=== PATIENT | male | born 1955 | race Caucasian/White ===

== ENCOUNTER 2021-10-20 11:59 | Outpatient (REF) | payer OTHER, SELFPAY ==
--- NOTE | ~2021-10-20 | US_ITS ---
EXAMINATION: US VENOUS ULTRASOUND WITH DOPPLER LOWER EXTREMITY, RIGHT CLINICAL INFORMATION: Right lower extremity pain and swelling COMPARISON: None TECHNIQUE: Ultrasound of the deep veins is performed from the hip to the calf with compression sonography and color and pulse Doppler assessment. Spectral analysis with color-flow imaging is performed. FINDINGS: There is normal venous compression and respiratory variation and augmented flow. The visualized common femoral vein, superficial femoral vein, profunda femoral vein, popliteal vein, and the trifurcation region shows no evidence of deep venous thrombosis. Barbour's cyst present measuring 4.6 x 1.1 x 3.1 cm. If the patient's symptoms persist, followup ultrasound in 5 days 7 days might be of value to exclude proximal propagation from a non-visualized calf vein. US/US venous duplex LE RT IMPRESSION: No DVT demonstrated in the right lower extremity. Barbour's cyst present.
== END 2021-10-20 12:00 | disposition home or self-care (01) ==
LOC: HO.US 11:59
PROVIDERS: PCP Internal Medicine; Visit Provider Internal Medicine
DX: M79.661 Pain in right lower leg (principal); R60.0 Localized edema
CPT/HCPCS: 93971

== ENCOUNTER 2022-06-30 14:24 | Outpatient (REF) | payer OTHER, SELFPAY ==
--- NOTE | ~2022-06-30 | XR_ITS ---
EXAMINATION: XR KNEE, RIGHT CLINICAL INFORMATION: Right knee injury with pain COMPARISON: None TECHNIQUE: Four views of the right knee. FINDINGS: A small knee joint effusion is present. Vascular calcifications are seen. Bones and soft tissues are otherwise normal. No fracture . Alignment is anatomic. Joint spaces are well maintained. No chondrocalcinosis. XR/XR knee RT 4V IMPRESSION: Small knee joint effusion. No evidence of an acute osseous injury.
== END 2022-06-30 14:25 | disposition home or self-care (01) ==
LOC: HO.HMGCX 14:24
PROVIDERS: PCP Internal Medicine; Visit Provider Internal Medicine
DX: S89.91XA Unspecified injury of right lower leg, initial encounter (principal); M25.561 Pain in right knee; X58.XXXA Exposure to other specified factors, initial encounter; Y93.9 Activity, unspecified; Y92.9 Unspecified place or not applicable; Y99.9 Unspecified external cause status
CPT/HCPCS: 73564

== ENCOUNTER 2025-01-13 11:26 | Outpatient (AMB) | payer OTHER, SELFPAY ==
--- NOTE | 2025-01-13 11:18 | A.OFFPC_ITS ---
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 Accompanied by: Self / Same As Patient Allergies No Known Allergies Allergy (Verified 01/13/25 11:41) Medication List - Last Reconciled 01/13/25 by Tomeka Chavira PA-C amlodipine 10 mg PO DAILY atorvastatin 10 mg PO DAILY losartan 100 mg PO DAILY naproxen 500 mg PO BID Tobacco use date assessed: 01/13/25 Fall risk assessment: No Falls in past year Last assessed Fall Risk: 01/13/25 Dental Screening Dental Screen Date: 01/13/25 Did you have a dental visit in the last 12 months?: Yes Did you have a dental problem in the last 6 months where you did not have access to dental care?: No Was dental information given to patient?: Patient has dentist HPI establish care HPI Details The patient is a 69-year-old male presenting for a new patient appointment and medication refills. The patient has a history of hypertension, managed with amlodipine and losartan, requiring refills during this visit. He reports no acute complaints related to his blood pressure management. The patient also has hyperlipidemia, for which he takes atorvastatin. He confirms that his recent blood work was normal, although specific results are not available due to record-keeping issues at his previous provider's office. He experiences osteoarthritis-related pain, particularly in his knee, for which he uses naproxen effectively. He ensures to take the medication with food to mitigate gastrointestinal side effects. The patient recently underwent a colonoscopy, which was normal except for non- bleeding hemorrhoids. He is on a five-year follow-up plan due to previous polyp findings. Social History - Exercise: Uses a knee brace occasional ly for support due to osteoarthritis. [facility] Medical History (Updated 01/13/25 @ 12:24 by Tomeka Chavira PA-C) Encounter for preventive care Osteoarthritis Hyperlipidemia Hypertension Establishing care with new doctor, encounter for Family History Father High blood pressure Heart attack Family history of diabetes mellitus Mother Lung cancer Social History Housing: House Alcohol intake: current Alcohol intake frequency: 0-2 drinks per day Patient Tobacco Use Status: Current everyday Tobacco user Cigarettes Per Day: 10 service: No Current occupational status: employed Cognitive needs: No Hearing needs: No Vision needs: Yes (cheaters glasses) Questionnaire PHQ-9 Over the last 2 weeks, how often have you been bothered by any of the following problems? 1. Little interest or pleasure in doing things: not at all 2. Feeling down, depressed, or hopeless: not at all 3. Trouble falling or staying asleep, or sleeping too much: not at all 4. Feeling tired or having little energy: not at all 5. Poor appetite or overeating: not at all 6. Feeling bad about yourself - or that you are a failure or have let yourself or your family down: not at all 7. Trouble concentrating on things, such as reading the newspaper or watching television: not at all 8. Moving or speaking so slowly that other people could have noticed. Or the opposite - being so fidgety or restless that you have been moving around a lot more than usual: not at all 9. Thoughts that you would be better off or of hurting yourself in some way: not at all Total score: 0 Depression Screening Interpretation: Negative Depression Screening Done: Yes 55053 - PHQ-9 Billing: Yes Source: Developed by Drs. Jasper Schmidt, Mariah Roque, Carlos Eduardo Kumar and colleagues, with an educational sue from [employer]. Thrive Questionnaire Date Thrive assessed: 01/13/25 I am a: Patient What is your living situation today?: I have a steady place to live Within the past 12 months, did the food you bought not last and you didn't have the money to get more?: Never true Within the past 12 months, did you worry whether your food would run out before you got money to buy more?: Never true Do you have trouble paying for medicines?: No Do you have trouble getting transportation to medical appointments?: No Do you have trouble paying your heating and electricity bill?: No Do you have trouble taking care of your child, family member or friend?: No Do you have trouble with day-to-day activities such as bathing, preparing meals, shopping, managing finances, etc.?: No Are you currently unemployed and looking for a job?: No Are you interested in more education?: No Please select the resources that you would like help with: None Currently or been in a relationship where the following occur: No concerns reported THRIVE Score: 0 AUDIT C Alcohol Use Questionnaire (AUDIT-C) 1. How often do you have a drink containing alcohol?: 2-3 times a week 2. How many drinks containing alcohol do you have on a typical day when you are drinking?: 1 or 2 3. How often do you have six or more drinks on one occasion?: Never Total Score: 3 Score Reviewed/Action Taken: No EDDI-7 AMB Questionnaire EDDI-7 Date EDDI - 7 assessed: 01/13/25 Feeling nervous, anxious, or on edge: 0 = Not at all Not being able to stop or control worryin = Not at all Worrying too much about different things: 0 = Not at all Trouble relaxin = Not at all Being so restless that it is hard to sit still: 0 = Not at all Becoming easily annoyed or irritable: 0 = Not at all Feeling afraid as if something awful might happen: 0 = Not at all Total EDDI-7 score (0-4 normal; 5-9 mild; 10-14 moderate; 15-21 severe): 0 Source: Developed by Drs. Jasper Schmidt, Mariah Roque, Carlos Eduardo Kumar and colleagues, with an educational sue from [employer]. EDDI-7 Assessment Billing EDDI-7 Assessment Tool: EDDI-7 Assessment 02585 Review of Systems Const Details: - Cardiovascular: Denies chest pain, palpitations, or syncope. - Musculoskeletal: Reports knee pain due to osteoarthritis, denies swelling or redness. Physical exam (Primary Care) Vital Signs: Last Vital Signs Temp 98.4 F 01/13/25 11:28 Pulse 66 01/13/25 11:28 Resp 20 01/13/25 11:28 BP 138/68 01/13/25 11:28 Pulse Ox 96 01/13/25 11:28 Oxygen Delivery Method Room Air 01/13/25 11:28 Care Plan Goal for BP management: <140/90 BMI result Body Mass Index 22.8 normal bmi Tobacco/Smoking Status: Tobacco use Status Tobacco use date assessed 01/13/25 01/13/25 11:23 Patient Tobacco Use Status Current everyday Tobacco 01/13/25 11:38 PHQ-9: PHQ-9 Score PHQ-9: Total score 0 01/13/25 11:23 Depression Screening Interpretation: Negative Thrive Assessment: Date of Thrive Assessment Date Thrive assessed 01/13/25 01/13/25 11:23 Currently or been in a relationship where the following occur: No concerns reported Const Other: Appearance: Alert. Oriented X3. No acute distress. Head: Normal external exam. Normocephalic. Atraumatic. Eyes: Pupils are equal, round, and reactive to light. Extraocular movements intact. Conjunctiva and sclera normal. Eyelids normal. Throat: Pharynx normal. Uvula midline. Moist mucous membranes. Neck: Normal inspection. Neck supple. Full range of motion. Cardiovascular: Normal heart rate and rhythm. Heart sound normal. No murmurs noted. Pulses normal throughout. Respiratory: No respiratory distress. Painless inspiration. Breath sounds normal. No wheezes/rales/rhonchi noted. Chest nontender. No accessory muscle usage noted or decreased air movement noted. Abdomen: Soft and nontender. Back: Full range of motion noted. Skin: Skin warm and dry. Normal skin color. Normal skin turgor. No rashes/lesions/lacerations noted. Extremities: No lower extremity edema. Extremities exhibit normal range of motion. Extremities nontender. Neuro: Oriented X 3. No motor deficit. No sensory deficit. Reflexes normal. Results Reviewed Results Reviewed: - Colonoscopy: Normal findings except for non-bleeding hemorrhoids, follow-up in five years due to previous polyps. Coding Level of Care Code New Pt Level 5 (99672) Complex EM visit Add On G2211 Diagnoses Establishing care with new doctor, encounter for Z76.89 Hypertension I10 Hyperlipidemia E78.5 Osteoarthritis M19.90 Encounter for preventive care Z00.00 Additional Codes PHQ-9 - 30854 - PHQ-9 Billing: Yes ([id number]) EDDI-7 Assessment Billing - EDDI-7 Assessment Tool: EDDI-7 Assessment 59775 ([id number]) Assessment & Plan Assessment & Plan (1) Establishing care with new doctor, encounter for: Code(s): Z76.89 - Persons encountering health services in other specified circumstances Category: Medical (2) Hypertension: Code(s): I10 - Essential (primary) hypertension Category: Medical Plan: The patient requires refills for amlodipine and losartan to manage his hypertension, with no acute complaints reported. (3) Hyperlipidemia: Code(s): E78.5 - Hyperlipidemia, unspecified Category: Medical Plan: The patient is on atorvastatin for hyperlipidemia, with recent blood work reported as normal, although specific results are unavailable. (4) Osteoarthritis: Code(s): M19.90 - Unspecified osteoarthritis, unspecified site Category: Medical Plan: The patient manages osteoarthritis-related knee pain with naproxen, ensuring to take it with food to avoid gastrointestinal issues. (5) Encounter for preventive care: Code(s): Z00.00 - Encounter for general adult medical examination without abnormal find ings Category: Medical Plan: The patient recently had a normal colonoscopy, except for non-bleeding hem orrhoids, and is on a five-year follow-up plan due to previous polyps. Plan Plan Patient was informed and verbally consented to the use of an ambient scribe for clinic note documentation during this visit. 1. Essential Hypertension The patient requires refills for amlodipine and losartan to manage his hypertension, with no acute complaints reported. 2. Hyperlipidemia The patient is on atorvastatin for hyperlipidemia, with recent blood work reported as normal, although specific results are unavailable. 3. Osteoarthritis The patient manages osteoarthritis-related knee pain with naproxen, ensuring to take it with food to avoid gastrointestinal issues. 4. Preventative Care: Colonoscopy The patient recently had a normal colonoscopy, except for non-bleeding hemorrhoids, and is on a five-year follow-up plan due to previous polyps. During the visit, we discussed the need for medication refills for hypertension and hyperlipidemia management. The patient was advised to continue taking naproxen with food for osteoarthritis pain management. We also reviewed the recent colonoscopy results and the follow-up plan due to previous polyp findings. Medications: New losartan 100 mg PO DAILY 90 tabs 3RF atorvastatin 10 mg PO DAILY 90 tabs 3RF naproxen 500 mg PO BID 90 days 180 tabs 3RF losartan 100 mg PO DAILY 90 tabs 3RF naproxen 500 mg PO BID 180 tabs 3RF 90 days amlodipine 10 mg PO DAILY 90 tabs 3RF amlodipine 10 mg PO DAILY 90 tabs 3RF atorvastatin 10 mg PO DAILY 90 tabs 3RF Patient Instructions: - Continue taking amlodipine and losartan as prescribed for blood pressure management. - Take atorvastatin as prescribed for cholesterol management. - Use naproxen with food to manage knee pain from osteoarthritis. - Follow up with a colonoscopy in five years unless advised otherwise.
[2025-01-13 11:28] VITALS: BP 138/68; PULSE 66; RESP 20; TEMP 36.9; O2SAT 96; BMI 22.8
--- OUTSIDE RECORDS SUMMARY | 2025-01-13 12:31 | XMS_ITS | Encounter Summary ---
Author Organization [facility] Address [address] [place] [address] [place] [phone] Phone Care Team Providers Care Webbing Inspector Name Role Phone Tommy Beckwith MD Primary Care Provider [phone] Vern Dang MD Primary Care Provid er Reason for Referral * MRI/CAT Scan - Closed Specialty Diagnoses / Procedures Referred By Ravin ailcea Referred To Contact Radiology Diagnoses Multiple pulmonary nodules Pulmonary emphysema, unspecified emphysema type Procedures CT Chest Tommy Beckwith MD [address] [place] [address] Phone: tel: fax: Referral ID Status Reason Start Date Expiration Date Visits Re quested Visits Authorized [id number] Closed 12/11/2020 12/11/2021 1 1 Encounter Details Date Type Department Care Team (Late st Contact Info) Description 12/11/2020 Ancillary Orders Virtual Department [address] [place] [address] Tommy Beckwith MD [address] [place] [address] Multiple pulmonary nodules; Pulmonary emphysema, unspecified emphysema type Social History Tobacco Use Types Packs/Day Years Used Date Smoking Tobacco: Never Assessed Sex and Gender Information Value Date Recorded Sex Assigned at Not on file Legal Sex Male 3:34 PM EDT Gender Identity Not on file Sexual Orientation Not on file documented as of this encounter Plan of Treatment Upcoming Encounters Date Type Department Care Team (Late st Contact Info) Description 11/06/2025 9:00 AM EDT Office Visit [facility] [address] [place] [address] Gema Higgins [address] [facility], [address] [place] [address] [email or web address] documented as of this encounter Results * CT CHEST WITHOUT CONTRAST (12/25/2020 3:50 PM EDT) Anatomical Region Laterality Modality Chest Computed Tomogra phy 12/25/2020 5:58 PM EDT Impressions 12/25/2020 6:15 PM EDT 1.Stable severe COPD and multiple bilateral subcentimeter pulmonary nodules. No new nodules or lymphadenopathy. Either continued CT surveillance in [address] recommended. 2.Additional findings as above. N.B.: Calcification in the coronary arteries does not in itself have a high positive predictive value for near term cardiac events; however, in the appropriate clinical setting it may be an indication for further evaluation or cardiology consultation depending on the patients cardiac risk factors. Narrative 12/25/2020 6:15 PM EDT COMPARISON: 06/11/2020. TECHNIQUE: CT chest without IV contrast. Multiplanar reformatted images generated. Automated exposure control utilized. CT CHEST FINDINGS: Lines/tubes: None. Lungs and Airways: No airway masses. Mild mild diffuse bronchial wall thickening. No bronchiectasis. Stable severe COPD with bullous emphysema and hyperinflation. No masses or consolidation. No significant change in the multiple bilateral subcentimeter pulmonary nodules with the largest measuring up to 8 mm in the lower lobes. No new nodules. Pleura: The pleural spaces are clear. Heart and mediastinum: Heart is normal in size. No pericardial effusion. Stable mild thoracic and moderate abdominal aortic atherosclerosis without aneurysm. Moderate coronary atherosclerosis aortic valve calcification. Pulmonary outflow trunk is normal in size. Esophagus is normal. No enlarged mediastinal or hilar lymph nodes. Thyroid gland is normal. Soft tissues: Normal. Abdomen: Limited igx-fccmkwtu-ewpgnmqp views of the upper abdomen obtained. Upper abdomen is unremarkable. Bones: No acute compression fractures. No destructive or suspicious bone lesions. Chronic severe diffuse osteopenia, mild mid thoracic kyphosis with mild disc space narrowing and multilevel mild anterior wedge deformities most prominent at T9. Stable T3 sclerotic lesion and moderate C7-T1 disc disease Procedure Note Naresh Mckeon MD - 12/25/2020 COMPARISON: 06/11/2020. TECHNIQUE: CT chest without IV contrast. Multiplanar reformatted imagesgenerated. Automated exposure control utilized. CT CHEST FINDINGS: Lines/tubes: None. Lungs and Airways: No airway masses. Mild mild diffuse bronchial wallthickening. No bronchiectasis. Stable severe COPD with bullous emphysemaand hyperinflation. No masses or consolidation. No significant change inthe multiple bilateral subcentimeter pulmonary nodules with the largestmeasuring up to 8 mm in the lower lobes. No new nodules. Pleura: The pleural spaces are clear. Heart and mediastinum: Heart is normal in size. No pericardial effusion.Stable mild thoracic and moderate abdominal aortic atherosclerosis withoutaneurysm. Moderate coronary atherosclerosis aortic valve calcification.Pulmonary outflow trunk is normal in size. Esophagus is normal. Noenlarged mediastinal or hilar lymph nodes. Thyroid gland is normal. Soft tissues: Normal. Abdomen: Limited fpm-civtqmlu-eskudbgk views of the upper abdomenobtained. Upper abdomen is unremarkable. Bones: No acute compression fractures. No destructive or suspicious bonelesions. Chronic severe diffuse osteopenia, mild mid thoracic kyphosiswith mild disc space narrowing and multilevel mild anterior wedgedeformities most prominent at T9. Stable T3 sclerotic lesion and moderateC7-T1 disc disease IMPRESSION: 1.Stable severe COPD and multiple bilateral subcentimeter pulmonarynodules. No new nodules or lymphadenopathy. Either continued CTsurveillance in [address] recommended. 2.Additional findings as above. N.B.: Calcification in the coronary arteries does not in itself have ahigh positive predictive value for near term cardiac events; however, inthe appropriate clinical setting it may be an indication for furtherevaluation or cardiology consultation depending on the patients cardiacrisk factors. us Tommy Beckwith MD IMG CT CHEST Final Resu lt documented in this encounter Visit Diagnoses Diagnosis Multiple pulmonary nodules Other diseases of lung, not elsewhere classified Pulmonary emphysema, unspecified emphysema type Multiple pulmonary nodules Other diseases of lung, not elsewhere classified Pulmonary emphysema, unspecified emphysema type documented in this encounter Care Teams Webbing Inspector Relationship Specialty Start Date End Date Tommy Beckwith MD [address] [place] [id number] PCP - General Internal Medicine 06/05/20 12/29/24 Vern Dang MD [address] [place] [id number] PCP - General Internal Medicine 12/30/24 documented as of this encounter Additional Source Comments The information contained in this document represents components of the legal health record. It is not the complete legal health record.[facility]
--- OUTSIDE RECORDS SUMMARY | 2025-01-13 12:31 | XMS_ITS | Patient Health Record ---
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 Name Role Phone Amena (RETIRED) Tommy HUNT Primary Care Provider Unavailable Maged Abebe Jr Unavailable Reason For Referral No Information Medications Medication SIG (Take, Route, Fr equency, Duration) Notes Start Date End Date Status MoviPrep 100 GM as directed before c olonoscopy Orally for 1 dose 10/10/2012 06/26/2024 Active Problems Problem Type SNOMED Code ICD Code Onset Dates Problem Status W/U Status Risk Notes Problem Colon cancer screening (V76.51) Active confirmed Plan Of Treatment Future Test Test Name Order Date COLONOSCOPY 10/10/2012 Insurance Providers Payer Name Payer Address Payer Phone Subscriber Number Group Number Insured Name Patient Relationship to Insured Coverage Start Date Coverage End Date [employer] (No Referra l) [address] [address] [place] [address] [id number] CAMPO Self - patient is the insured Medical (General) History Medical History History ICD Code Denies VT,DM,CVA,Lung disease,renal dise ase Surgical History Surgery Date(Month/Year) finger surgery
== END 2025-01-13 11:50 | disposition home or self-care (01) ==
LOC: HO.HMCSH 11:26
PROVIDERS: PCP Internal Medicine; Visit Provider Physician Assistant Medical
DX: I10 Essential (primary) hypertension (principal); Z76.89 Persons encountering health services in other specified circumstances; E78.5 Hyperlipidemia, unspecified; M19.90 Unspecified osteoarthritis, unspecified site

== ENCOUNTER → 2025-01-13 11:26 | Outpatient (BNVA) | payer OTHER, SELFPAY | PROVIDERS: PCP Internal Medicine; Visit Provider Physician Assistant Medical | DX: Z00.00 Encounter for general adult medical examination without abnormal findings (principal); I10 Essential (primary) hypertension; E78.5 Hyperlipidemia, unspecified; M19.90 Unspecified osteoarthritis, unspecified site; Z76.89 Persons encountering health services in other specified circumstances | CPT/HCPCS: 96127 ==